=== PATIENT | female | born 1960 | race Caucasian/White ===

== ENCOUNTER → 2016-08-03 | Outpatient (CLI) | payer BC ==
[~2016-08-03] VITALS: Ht 162.6 cm; Wt 83.9 kg
== END ==
LOC: OPSV 09:00
DX: K35.2 Acute appendicitis with generalized peritonitis (principal); E11.9 Type 2 diabetes mellitus without complications; D72.823 Leukemoid reaction
CPT/HCPCS: 96365; J1335; J7050

== ENCOUNTER → 2016-08-04 | Outpatient (CLI) | payer BC ==
[~2016-08-04] VITALS: Ht 162.6 cm; Wt 83.9 kg
== END ==
LOC: OPSV 14:28
DX: E11.9 Type 2 diabetes mellitus without complications (principal); K35.2 Acute appendicitis with generalized peritonitis; D72.823 Leukemoid reaction
CPT/HCPCS: 96365; J1335; J7050

== ENCOUNTER → 2016-08-05 | Outpatient (CLI) | payer BC ==
[~2016-08-05] VITALS: Ht 162.6 cm; Wt 83.9 kg
== END ==
LOC: OPSV 14:30
DX: K35.2 Acute appendicitis with generalized peritonitis (principal); D72.823 Leukemoid reaction; E11.9 Type 2 diabetes mellitus without complications
CPT/HCPCS: 96365; J1335; J7050

== ENCOUNTER → 2016-08-06 | Outpatient (CLI) | payer BC ==
[~2016-08-06] VITALS: Ht 162.6 cm; Wt 83.9 kg
== END ==
LOC: OPSV 09:22
DX: E11.9 Type 2 diabetes mellitus without complications (principal); D72.823 Leukemoid reaction; K35.2 Acute appendicitis with generalized peritonitis
CPT/HCPCS: 96365; J1335; J7050

== ENCOUNTER → 2016-08-07 | Outpatient (CLI) | payer BC ==
[~2016-08-07] VITALS: Ht 162.6 cm; Wt 83.9 kg
== END ==
LOC: OPSV 07:21
DX: K35.2 Acute appendicitis with generalized peritonitis (principal); D72.823 Leukemoid reaction; E11.9 Type 2 diabetes mellitus without complications
CPT/HCPCS: 96365; J1335; J7050

== ENCOUNTER → 2016-08-08 | Outpatient (CLI) | payer BC ==
[~2016-08-08] VITALS: Ht 162.6 cm; Wt 83.9 kg
== END ==
LOC: OPSV 14:24
DX: K35.2 Acute appendicitis with generalized peritonitis (principal); D72.823 Leukemoid reaction; E11.9 Type 2 diabetes mellitus without complications
CPT/HCPCS: 96365; J1335; J7050

== ENCOUNTER → 2016-08-09 | Outpatient (CLI) | payer BC ==
[~2016-08-09] VITALS: Ht 162.6 cm; Wt 83.9 kg
== END ==
LOC: OPSV 14:06
DX: K35.2 Acute appendicitis with generalized peritonitis (principal); D72.823 Leukemoid reaction; E11.9 Type 2 diabetes mellitus without complications
CPT/HCPCS: 96365; J1335; J7050

== ENCOUNTER → 2016-08-10 | Outpatient (CLI) | payer BC | LOC: OPSV 14:11 | DX: K35.2 Acute appendicitis with generalized peritonitis (principal); D72.823 Leukemoid reaction; E11.9 Type 2 diabetes mellitus without complications | CPT/HCPCS: 96365; J1335; J7050 ==

== ENCOUNTER → 2016-08-11 | Outpatient (CLI) | payer BC ==
[~2016-08-11] VITALS: Ht 162.6 cm; Wt 83.9 kg
== END ==
LOC: OPSV 14:26
DX: K35.2 Acute appendicitis with generalized peritonitis (principal); D72.823 Leukemoid reaction; E11.9 Type 2 diabetes mellitus without complications
CPT/HCPCS: 96365; J1335; J7050

== ENCOUNTER → 2016-08-12 | Outpatient (CLI) | payer BC ==
[~2016-08-12] VITALS: Ht 162.6 cm; Wt 83.9 kg
== END ==
LOC: OPSV 14:27
DX: K35.2 Acute appendicitis with generalized peritonitis (principal); D72.823 Leukemoid reaction; E11.9 Type 2 diabetes mellitus without complications
CPT/HCPCS: 96365; J1335; J7050

== ENCOUNTER → 2016-08-13 | Outpatient (CLI) | payer BC ==
[~2016-08-13] VITALS: Ht 162.6 cm; Wt 83.9 kg
== END ==
LOC: OPSV 08:04
DX: K35.2 Acute appendicitis with generalized peritonitis (principal); D72.823 Leukemoid reaction; E11.9 Type 2 diabetes mellitus without complications
CPT/HCPCS: 96365; J1335; J7050

== ENCOUNTER → 2016-08-14 | Outpatient (CLI) | payer BC ==
[~2016-08-14] VITALS: Ht 162.6 cm; Wt 83.9 kg
== END ==
LOC: OPSV 08:06
DX: K35.2 Acute appendicitis with generalized peritonitis (principal); D72.823 Leukemoid reaction; E11.9 Type 2 diabetes mellitus without complications
CPT/HCPCS: 96365; J1335; J7050

== ENCOUNTER → 2016-08-15 | Outpatient (CLI) | payer BC ==
[~2016-08-15] VITALS: Ht 162.6 cm; Wt 83.9 kg
== END ==
LOC: OPSV 10:57
DX: K35.2 Acute appendicitis with generalized peritonitis (principal); E11.9 Type 2 diabetes mellitus without complications; D72.823 Leukemoid reaction
CPT/HCPCS: 96365; J1335; J7050

== ENCOUNTER → 2016-08-20 | Outpatient (CLI) | payer BC | LOC: LBRF 21:02 | DX: E66.9 Obesity, unspecified (principal); K35.2 Acute appendicitis with generalized peritonitis ==